=== PATIENT | female | born 1955 | race Caucasian/White ===

== ENCOUNTER 2022-08-10 11:17 | Emergency (ER) | payer OTHER, SELFPAY ==
--- NOTE | ~2022-08-10 | XR_ITS ---
EXAMINATION: XR CHEST CLINICAL INFORMATION: Fever and cough COMPARISON: None TECHNIQUE: 2 views of the chest were obtained. FINDINGS: The cardiac silhouette does not appear enlarged. Mediastinal contours are unremarkable. There are increased central hilar markings questionable for bronchial wall thickening or airways disease. No evidence of a lobar pneumonia. There is no pleural effusion or pneumothorax. There are mild degenerative changes of the spine. XR/XR chest 2V IMPRESSION: Increased central hilar markings suggestive of bronchial wall thickening or airways disease. No evidence of a lobar pneumonia.
--- NOTE | 2022-08-10 12:03 | ED.URI ---
HPI - URI/Sore Throat General Chief Complaint: General Medical <Mary Toure CNP - Last Filed: 08/10/22 12:12> Stated Complaint: fever, body aches <Mary Toure CNP - Last Filed: 08/10/22 12:12> Time Seen by Provider: 08/10/22 12:17 <Mary Toure CNP - Last Filed: 08/10/22 12:12> Source: patient and parts interpreter <Paola Halwey NP - Last Filed: 08/10/22 13:00> Mode of arrival: ambulatory <Paola Hawley NP - Last Filed: 08/10/22 13:00> Limitations: language barrier <Paola Hawley NP - Last Filed: 08/10/22 13:00> History of Present Illness HPI Narrative: 66 yo female healthy here with cough, body aches, headache, tactile temp since Saturday night. No neck pain/stiffness, vomiting, diarrhea, abdominal pain, skin rash, abdominal pain, chest pain, diff breathing. <Paola Hawley NP - Last Filed: 08/10/22 13:00> Related Data Home Medications: Previous Rx's Medication Instructions Recorded oseltamivir 75 mg capsule (Tamiflu) 75 mg PO Q12H 5 days #10 caps 08/10/22 <Mary Toure CNP - Last Filed: 08/10/22 12:12> Allergies/Adverse Reactions: Allergies Allergy/AdvReac Type Severity Reaction Status Date / Time No Known Allergies Allergy Verified 08/10/22 12:09 <Mary Toure CNP - Last Filed: 08/10/22 12:12> Review of Systems Review of Systems: Yes all other systems are reviewed and are negative <KACY Martinez Last Filed: 08/10/22 13:00> Constitutional: Constitutional: Reports no additional constitutional complaints, Reports body ache(s), Reports chills, Reports fever(s), Reports headache(s) and Denies weakness <KACY Martinez Last Filed: 08/10/22 13:00> Eyes: Eyes: Reports no additional eye complaints and Denies change in vision <Paola Hawley NP - Last Filed: 08/10/22 13:00> ENT: Reports system reviewed and no additional complaints, except as documented, Denies dizziness, Reports headache(s), Denies nasal congestion, Denies nasal discharge and Denies neck pain <Paola Hawley NP - Last Filed: 08/10/22 13:00> Cardiovascular: Cardiovascular: Reports no additional cardiovascular complaints, Denies chest pain, Denies leg edema and Denies dyspnea <Paola Hawley NP - Last Filed: 08/10/22 13:00> Respiratory: Respiratory: Reports no additional respiratory complaints, Reports cough and Denies dyspnea <Paola Hawley NP - Last Filed: 08/10/22 13:00> Gastrointestinal: Gastrointestinal: Reports no additional gastrointestinal complaints, Denies abdominal pain, Denies diarrhea, Denies nausea and Denies vomiting <Paola Hawley NP - Last Filed: 08/10/22 13:00> Genitourinary: Genitourinary: Reports no additional female genitourinary complaints and Denies urinary incontinence <Paola Hawley NP - Last Filed: 08/10/22 13:00> Musculoskeletal: Musculoskeletal: Reports no additional musculoskeletal complaints, Denies back pain, Denies arthralgias, Denies joint swelling, Denies neck pain, Denies numbness and Denies tingling <Paola Hawley NP - Last Filed: 08/10/22 13:00> Integumentary/Breasts: Skin/Breast: Reports system reviewed and no additional complaints, except as docu and Denies rash <Paola Hawley NP - Last Filed: 08/10/22 13:00> Neurologic: Reports system reviewed and no additional complaints, except as documented, Denies Abnormal speech present, Denies dizziness, Reports headache(s), Denies numbness, Denies tingling and Denies weakness <Paola Hawley NP - Last Filed: 08/10/22 13:00> PMFSH Past Medical History Attestation statement: The following information was validated with the patient. <Paola Hawley NP - Last Filed: 08/10/22 13:00> Source: old records reviewed and nursing notes reviewed <Paola Hawley NP - Last Filed: 08/10/22 13:00> Physical Exam Vital Signs: Vital Signs: Last Vital Signs Temp 99.9 F 08/10/22 12:04 Pulse 95 08/10/22 12:04 Resp 20 08/10/22 12:04 BP 150/82 H 08/10/22 12:04 Pulse Ox 96 08/10/22 12:04 O2 Del Method 08/10/22 12:04 BMI result Body Mass Index 26.5 <Mary Toure CNP - Last Filed: 08/10/22 12:12> Vital Signs: Last Vital Signs Temp 99.9 F 08/10/22 12:04 Pulse 95 08/10/22 12:04 Resp 20 08/10/22 12:04 BP 150/82 H 08/10/22 12:04 Pulse Ox 96 08/10/22 12:04 O2 Del Method 08/10/22 12:04 BMI result Body Mass Index 26.5 <Paola Hawley NP - Last Filed: 08/10/22 13:00> Const: General: cooperative, healthy appearing, comfortable and no acute distress <Paola Hawley NP - Last Filed: 08/10/22 13:00> Orientation/consciousness: patient oriented x3 <Paola Hawley NP - Last Filed: 08/10/22 13:00> Limitations: no limitations <Paola Hawley NP - Last Filed: 08/10/22 13:00> HEENT: Head: Yes normal to inspection <Paola Hawley NP - Last Filed: 08/10/22 13:00> Ears: hearing grossly normal bilaterally and TM's normal bilaterally <Paola Hawley NP - Last Filed: 08/10/22 13:00> General nose exam: Normal external nose present <Paola Hawley NP - Last Filed: 08/10/22 13:00> Face and sinus: Yes normal facial exam <Paola Hawley NP - Last Filed: 08/10/22 13:00> Mouth: Normal oral and palatal mucosa present <Paola Hawley NP - Last Filed: 08/10/22 13:00> Throat: Yes posterior oropharynx normal, Yes tonsils normal and Yes uvula midline <Paola Hawley NP - Last Filed: 08/10/22 13:00> Eyes: General: appearance normal, both eyes and all related structures <Paola Hawley NP - Last Filed: 08/10/22 13:00> Pupils: Equal, round and reactive pupils present <Paola Hawley NP - Last Filed: 08/10/22 13:00> Neck: Neck: Yes normal visual inspection, Yes full ROM, Yes no lymphadenopathy and Yes no meningeal signs <Paola Hawley NP - Last Filed: 08/10/22 13:00> Chest: Chest palpation & inspection: normal inspection of the chest <Paola Hawley NP - Last Filed: 08/10/22 13:00> Resp: Effort & Inspection: normal respiratory effort <Paola Hawley NP - Last Filed: 08/10/22 13:00> Auscultation: clear to auscultation bilaterally <Paola Hawley NP - Last Filed: 08/10/22 13:00> Cardio: Rate: regular rate <Paola Hawley NP - Last Filed: 08/10/22 13:00> Rhythm: regular rhythm <Paola Hawley NP - Last Filed: 08/10/22 13:00> Peripheral pulses: Peripheral pulses 2+ throughout <Paola Hawley NP - Last Filed: 08/10/22 13:00> GI: Inspection: Yes normal to inspection <Paola Hawley NP - Last Filed: 08/10/22 13:00> Palpation (GI): Soft to palpation and nontender <Paola Hawley NP - Last Filed: 08/10/22 13:00> Auscultation: normal bowel sounds <Paola Hawley NP - Last Filed: 08/10/22 13:00> Back/Spine/Pelvis: Thoracic/Lumbar Spine: thoracic and lumbar spine normal to inspection <Paola Hawley NP - Last Filed: 08/10/22 13:00> Skin: General skin exam: no rashes or lesions noted <Paola Hawley NP - Last Filed: 08/10/22 13:00> Neuro: General: patient oriented x3, no meningeal signs, no focal motor deficits and normal sensation to monofilament <Paola Hawley NP - Last Filed: 08/10/22 13:00> Cranial nerves: Yes Equal, round and reactive pupils present <Paola Hawley NP - Last Filed: 08/10/22 13:00> Cognition (Neuro): normal cognition <Paola Hawley NP - Last Filed: 08/10/22 13:00> Speech: No Abnormal speech present <Paola Hawley NP - Last Filed: 08/10/22 13:00> Gait exam (Neuro): Normal gait present <Paola Hawley NP - Last Filed: 08/10/22 13:00> Motor exam (neuro): 5/5 motor strength present throughout <Paola Hawley NP - Last Filed: 08/10/22 13:00> Extrem: General: Yes normal to inspection, Yes no pedal edema and Yes no calf tenderness <Paloa Hawley NP - Last Filed: 08/10/22 13:00> Course Course Course Narrative: RME: 66-year-old female who presents for evaluation of fevers, body aches, headache, nausea without vomiting, muscle aching and stiffeness, and nasal congestion. Symptom onset 3 days ago. Denies any known sick contacts. PE: Lung sounds with rhonchi upon auscultation bilaterally. No increased work of breathing. No apparent distress. Plan: COVID-19 testing, influenza testing, chest x-ray. <Mary Toure CNP - Last Filed: 08/10/22 12:12> Reevaluation(s) Reevaluation #1: 1259-X-ray negative for PNA. NO hypoxia or tachypnea. LS CTA. COVID testing is negative. FLU A positive. Discussed tamiflu and patient would like treatment. Reviewed worrisome signs/symptoms with patient and when to seek additional care. Comfortable with plan for discharge home. <Paola Hawley NP - Last Filed: 08/10/22 13:00> MDM - URI/Sore Throat MDM Narrative Medical decision making narrative: 66 yo female here with 3 days of body aches, headache, cough, tactile temps On arrival low grade fever LS CTA VSS No meningeal signs or lymphadenopathy. Will send flu, covid testing, CXR <Paola Hawley NP - Last Filed: 08/10/22 13:00> Medical Records Attestation: I reviewed the patient's medical records. <Paola Hawley NP - Last Filed: 08/10/22 13:00> Lab Data Attestation: I reviewed the patient's lab results. <Paola Hawley NP - Last Filed: 08/10/22 13:00> Labs: Lab Results 08/10/22 08/10/22 Range/Units 12:11 12:11 COVID-19 (ETHAN) Negative (Negative) COVID-19 Clin Com See Note Influenza Type A (DARRIN) Positive A (Negative) Influenza Type B (DARRIN) Negative (Negative) Influenza A & B Note See Note <Mary Toure CNP - Last Filed: 08/10/22 12:12> Lab Results 08/10/22 08/10/22 Range/Units 12:11 12:11 COVID-19 (ETHAN) Negative (Negative) COVID-19 Clin Com See Note Influenza Type A (DARRIN) Positive A (Negative) Influenza Type B (DARRIN) Negative (Negative) Influenza A & B Note See Note <Paola Hawley NP - Last Filed: 08/10/22 13:00> Imaging Data Chest x-ray: Attestation: I personally reviewed and interpreted this imaging study as follows: <Paola Hawley NP - Last Filed: 08/10/22 13:00> Radiologist's impression: [address] [address] XRay Report Signed Patient: Micaela Ascencio MR#: [id number] : 1955 Acct:[id number] Age/Sex: 66 / F ADM Date: 08/10/22 Loc: HO.ED Attending Dr: Ordering Physician: Mary Toure CNP Date of Service: 08/10/22 Procedure(s): XR chest 2V Accession Number(s): [id number] cc: Mary Toure CNP~ EXAMINATION: XR CHEST CLINICAL INFORMATION: Fever and cough COMPARISON: None TECHNIQUE: 2 views of the chest were obtained. FINDINGS: The cardiac silhouette does not appear enlarged. Mediastinal contours are unremarkable. There are increased central hilar markings questionable for bronchial wall thickening or airways disease. No evidence of a lobar pneumonia. There is no pleural effusion or pneumothorax. There are mild degenerative changes of the spine. XR/XR chest 2V IMPRESSION: Increased central hilar markings suggestive of bronchial wall thickening or airways disease. No evidence of a lobar pneumonia. <Paola Hawley NP - Last Filed: 08/10/22 13:00> Discharge Plan Discharge Clinical Impression: Influenza A <Mary Toure CNP - Last Filed: 08/10/22 12:12> Patient Disposition: Home, Self-Care <Mary Toure CNP - Last Filed: 08/10/22 12:12> Instructions: Influenza (ED) <Mary Toure CNP - Last Filed: 08/10/22 12:12> Additional Instructions: x-ray is normal covid test is negative <Mary Toure CNP - Last Filed: 08/10/22 12:12> Prescriptions: New oseltamivir [Tamiflu] 75 mg capsule 75 mg PO Q12H 5 Days Qty: 10 0RF <Mary Toure CNP - Last Filed: 08/10/22 12:12> Referrals: Physician,Unknown J [Primary Care Provider] - 1 week <Mary Toure CNP - Last Filed: 08/10/22 12:12> Stand Alone Forms: Work/School Release <Mary Toure CNP - Last Filed: 08/10/22 12:12> Print Language: Azeri <Mary Toure CNP - Last Filed: 08/10/22 12:12>
[2022-08-10 12:04] VITALS: BP 150/82; PULSE 95; RESP 20; TEMP 37.7; O2SAT 96; BMI 26.5
[2022-08-10 12:32] LABS: COVID-19 Test Negative (Negative); IDNOW Serial# 16C4AD1C; IDNOW Serial# BCCEAD1C; Influenza A Positive (Negative); Influenza B2 Negative (Negative)
[2022-08-10] MEDS: Acetaminophen 325 MG TABLET 975 MG PO (13:35)
== END 2022-08-10 13:41 | disposition home or self-care (01) ==
PROVIDERS: Nurse Practitioner Family; Emergency Provider Emergency Medicine Emergency Medical Services
DX: J11.1 Influenza due to unidentified influenza virus with other respiratory manifestations (principal); R50.9 Fever, unspecified
CPT/HCPCS: 71046; 87502; 87635; 99283